=== PATIENT | male | born 1965 | race American Indian/Alaskan Native ===

== ENCOUNTER 2018-07-17 13:12 | Emergency (ER) | payer BC ==
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
[2018-07-17 13:54] LABS: Basophils # (Auto) 0.1 K/mm3 (0.0-0.1); Basophils % (Auto) 0.6 % (0.0-1.8); Eosinophils % (Auto) 0.6 % (0.0-4.3); Hematocrit 34.8 % (35.5-45.6); Hemoglobin 11.7 gm/dl (11.8-15.2); Lymphocytes # (Auto) 1.7 K/mm3 (1.2-5.4); Lymphocytes % (Auto) 20.3 % (13.4-35.0); Mean Corpuscular HGB Conc 34 % (32-34); Mean Corpuscular Volume 80 fl (84-94); Monocytes # (Auto) 0.5 K/mm3 (0.0-0.8); Monocytes % (Auto) 6.4 % (0.0-7.3); Platelet Count 278 K/mm3 (140-440); Red Blood Count 4.34 M/mm3 (3.65-5.03)
[2018-07-17 14:20] LABS: Albumin 3.9 g/dL (3.9-5); Calcium 9.4 mg/dL (8.4-10.2)
[2018-07-17] MEDS ORDERED: MORPHINE IV ONE (14:36)
[2018-07-17] MEDS ORDERED: NACL 0.9% 1000 ML 1,000 ML IV ONE ×2 (14:36→15:28)
[2018-07-17] MEDS ORDERED: ZOFRAN IV ONE (14:37)
[2018-07-17] MEDS ORDERED: ZOFRAN ONE (14:41)
[2018-07-17] MEDS ORDERED: MORPHINE ONE (14:41)
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
[2018-07-17 15:50] VITALS: BP 154/102
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
== END 2018-07-17 17:54 | disposition other institution (70) ==
LOC: ED 13:12
DX: T21.22XA Burn of second degree of abdominal wall, initial encounter (principal); T31.0 Burns involving less than 10% of body surface; X10.0XXA Contact with hot drinks, initial encounter; Y93.89 Activity, other specified; Y92.89 Other specified places as the place of occurrence of the external cause; Y99.8 Other external cause status
CPT/HCPCS: 16025; 36415; 80053; 85025; 96374; 96375; 99284; J2270; J2405; J7030

== ENCOUNTER 2021-02-01 12:02 | Emergency (ER) | payer BC ==
[2021-02-01 12:10] VITALS: BP 164/103
--- NOTE | 2021-02-01 12:17 | Emergency Department Report ---
ED General Adult HPI - General Chief complaint: Tube Replacement Stated complaint: CATH REPLACE Time Seen by Provider: 02/01/21 12:12 Source: patient Mode of arrival: Stretcher Limitations: No Limitations - History of Present Illness Initial comments: Patient presents by EMS secondary to Montoya catheter placement. Patient has a chronic indwelling Montoya catheter. He came out this morning. He has no complaint. He denies chest pain or abdominal pain. There is no fevers or chills. He has had no cough or congestion. Has no shortness of breath. This particular catheter had been in for a month. He has had a Montoya catheter for over a year. - Related Data Home Medications Medication Instructions Recorded Confirmed Last Taken carvediloL [Coreg] 12.5 mg PO BID 06/24/17 02/01/21 02/01/21 12.5mg NIFEdipine [Nifedipine ER] 90 mg PO DAILY 10/31/19 02/01/21 02/01/21 90 mg Previous Rx's Medication Instructions Recorded Last Taken Type Aspirin 325 mg PO QDAY tablet 07/03/17 02/01/21 Rx 325 mg AtorvaSTATin [Lipitor] 40 mg PO QHS tablet 07/03/17 01/31/21 Rx 40 mg hydrALAZINE [Apresoline TAB] 25 mg PO BID #60 tablet 05/27/20 Unknown Rx Allergies Allergy/AdvReac Type Severity Reaction Status Date / Time No Known Allergies Allergy Unverified 06/23/17 22:00 ED Review of Systems ROS: Stated complaint: CATH REPLACE Other details as noted in HPI Comment: All other systems reviewed and negative Constitutional: denies: fever Eyes: denies: eye pain ENT: denies: throat pain Respiratory: denies: cough Cardiovascular: denies: chest pain Endocrine: denies: unexplained weight loss Gastrointestinal: denies: abdominal pain Genitourinary: as per HPI Musculoskeletal: denies: back pain Skin: denies: rash Hematological/Lymphatic: denies: easy bruising ED Past Medical Hx - Past Medical History Previous Medical History?: Yes Hx Hypertension: Yes Hx 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) Hx Heart Attack/AMI: No Hx Congestive Heart Failure: Yes Hx Diabetes: Yes Hx Deep Vein Thrombosis: No Hx Liver Disease: No Hx Renal Disease: Yes Hx Seizures: No Hx Asthma: No Hx COPD: No Hx Dementia: No 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 Disease since 2012 inherited a form of Parkinsons - Surgical History Past Surgical History?: Yes Hx Coronary Stent: No Hx Pacemaker: No Hx Internal Defibrillator: No - Social History Smoking Status: Never Smoker - Medications Home Medications: Home Medications Medication Instructions Recorded Confirmed Last Taken Type carvediloL [Coreg] 12.5 mg PO BID 06/24/17 02/01/21 02/01/21 History 12.5mg Aspirin 325 mg PO QDAY tablet 07/03/17 02/01/21 02/01/21 Rx 325 mg AtorvaSTATin [Lipitor] 40 mg PO QHS tablet 07/03/17 02/01/21 01/31/21 Rx 40 mg NIFEdipine [Nifedipine ER] 90 mg PO DAILY 10/31/19 02/01/21 02/01/21 History 90 mg hydrALAZINE [Apresoline TAB] 25 mg PO BID #60 tablet 05/27/20 Unknown Rx ED Physical Exam - General Limitations: No Limitations, Physical Limitation ( multiple contractures), Other ( Pulse ox noted and normal) General appearance: alert, in no apparent distress - Head Head exam: Present: atraumatic, normocephalic, normal inspection - Eye Eye exam: Present: normal appearance, EOMI - ENT ENT exam: Present: mucous membranes moist, normal external ear exam - Neck Neck exam: Present: normal inspection - Respiratory Respiratory exam: Present: normal lung sounds bilaterally. Absent: respiratory distress - Cardiovascular Cardiovascular Exam: Present: regular rate, normal rhythm - GI/Abdominal GI/Abdominal exam: Present: soft. 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 Montoya catheter was ordered. Old records reviewed. ED Medical Decision Making - Medical Decision Making Patient presents by EMS secondary to Montoya catheter placement. This was replaced as it had been dislodged. Patient does not have evidence of CVA tenderness suggestive of injury. There is no complaint regarding abdominal pain that would suggest any other pathology. Abdomen remains soft and nontender. There was no other concern based on EMS or patient report. He was subsequently discharged. Critical Care Time: No Critical care attestation.: If time is entered above; I have spent that time in minutes in the direct care of this critically ill patient, excluding procedure time. ED Disposition Clinical Impression: Encounter for Montoya catheter replacement Disposition: 01 HOME / SELF CARE / HOMELESS Is pt being admited?: No Condition: Stable Additional Instructions: Continue routine catheter care. Push fluids. Return for problems. Follow-up with your regular physician for recheck. Referrals: PRIMARY CAREMD [Primary Care Provider] - 3-5 Days
== END 2021-02-01 13:02 | disposition home or self-care (01) ==
LOC: ED 12:02
DX: T83.028A Displacement of other urinary catheter, initial encounter (principal); I11.0 Hypertensive heart disease with heart failure; I50.9 Heart failure, unspecified; E11.9 Type 2 diabetes mellitus without complications; Z79.82 Long term (current) use of aspirin; Z79.899 Other long term (current) drug therapy; Y84.6 Urinary catheterization as the cause of abnormal reaction of the patient, or of later complication, without mention of misadventure at the time of the procedure; Y92.89 Other specified places as the place of occurrence of the external cause
CPT/HCPCS: 51702; 99281; 99282